=== PATIENT | male | born 1945 | race Caucasian/White ===

== ENCOUNTER 2018-01-14 08:14 | Observation (INO) ==
[2018-01-14] MEDS ORDERED: *HR* Promethazine 25 MG/ML VIAL IVP PRN (11:08)
[2018-01-14] MEDS ORDERED: Isovue-370 500 ML INFUS..BTL IV ONE ×2 (11:08→14:58)
[2018-01-14] MEDS ORDERED: Naloxone 0.4 MG/ML INJ IVP PRN (11:08)
[2018-01-14 11:42] LABS: Basophils # 0.1 K/mcL (0.0-0.2); Eosinophils # 0.1 K/mcL (0.0-0.6); Eosinophils % 1.7 %; Hematocrit 41.9 % (37.5-50.1); Hemoglobin 13.9 g/dL (12.9-16.9); Immature Granulocytes % 0.3 % (0-4); Lymphocytes # 2.1 K/mcL (0.6-4.6); Lymphocytes % 27.2 %; Mean Corpuscular HGB Conc 33.2 g/dL (31.6-35.5); Mean Corpuscular Hemoglobin 31.2 pg (28.0-33.3); Mean Corpuscular Volume 93.9 fL (83.0-100.0); Mean Platelet Volume 10.2 fL (9.4-12.4); Monocytes # 0.7 K/mcL (0.0-1.3); Monocytes % 8.9 %; Neutrophils # 4.8 K/mcL (1.6-8.9); Nucleated Red Blood Cells 0.4 /100 WBC (0); Platelet Count 228 K/mcL (140-400); Red Blood Count 4.46 M/mcL (4.19-5.50); Red Cell Distribution Width 14.6 % (11.5-14.5); Segmented Neutrophils % 60.9 %
[2018-01-14 11:53] LABS: INR 1.1; Prothrombin Time 11.5 Seconds (9.4-12.1)
[2018-01-14 12:07] LABS: BUN/Creatinine Ratio 13 (6-26); Blood Urea Nitrogen 15 mg/dL (8-23); Calcium 9.3 mg/dL (8.6-10.3); Carbon Dioxide 23 mEq/L (23-29); Chloride 108 mEq/L (98-107); Glucose 98 mg/dL (70-105); Osmolality,Calculated 289 (280-300); Potassium 4.1 mEq/L (3.5-5.1); Sodium 139 mEq/L (136-145); eGFR For African Americans > 60 (> 60); eGFR For Non-African Americans 60 (> 60)
--- NOTE | 2018-01-14 12:20 | Urology - Consult Note ---
<Karrie Ramsay N - Last Filed: 01/14/18 12:30> Date of Encounter: 01/14/18 Time of Encounter: 12:17 - Assessment and Plan (1) Gross hematuria Current Visit: Yes Status: Acute Assessment and plan: Patient underwent cystoscopy [address] scan to proceed with TURBT and ureteroscopy. (2) Hydronephrosis Current Visit: Yes Status: Acute Assessment and plan: Awaiting CT scan to further evaluate. Plan to proceed with TURBT and ureteroscopy. (3) Bladder cancer Current Visit: Yes Status: Acute Assessment and plan: Patient has known history of recurrent bladder cancer. Patient is currently awaiting CT abd/pelvis. Plan to undergo TURBT, Right Ureteroscopy. Urology CN:HPI Consult date: 01/14/18 History of present illness: Patient is a 72 yo male with a known history of bladder cancer who presents with gross hematuria. Patient underwent cystoscopy in office [address] Dumont revealing a large bladder tumor. Patient currently reports mild dysuria and worsening urinary urgency. States hematuria is intermittent and denies incontinence, hesitancy, post-void residual, or decreased output or flow. Patient is currently awaiting CT scan. Medications and Allergies Aspirin [Lo-Dose Aspirin EC] 81 mg PO DAILY 01/14/18 [History] Azithromycin [Zithromax] 250 mg PO MOWEFR 01/14/18 [History] Budesonide/Formoterol 160/4.5 [Symbicort 160/4.5] 2 puff IH BIDR 01/14/18 [ History] Ciprofloxacin HCl [Cipro] 500 mg PO DAILY 01/14/18 [History] Ipratropium/Albuterol Sulfate [Combivent Respimat Inhal [place]] 1 puff IH QID [History] LORazepam [Ativan] 0.5 mg PO DAILY 01/14/18 [History] Losartan Potassium [Cozaar] 100 mg PO DAILY 01/14/18 [History] Tiotropium [Spiriva] 18 mcg IH DAILY 01/14/18 [History] predniSONE [PredniSONE] 1 mg PO MOWEFR 01/14/18 [History] Review of Systems - Constitutional as per HPI, fatigue, no chills, no fever(s), no weakness, no weight loss - Cardiovascular dyspnea (stable; chronic COPD), no chest pain, no diaphoresis, no edema, no palpitations - Respiratory dyspnea, no cough (stable; chronic COPD) - Gastrointestinal abdominal pain (mild suprapubic discomfort ), no change in bowel habits, no fecal incontinence, no nausea, no vomiting - Genitourinary as per HPI, dysuria, hematuria, nocturia, urinary frequency, urinary urgency, no change in urinary stream, no difficulty urinating, no flank pain, no genital pain, no post void dribbling, no scrotal swelling, no testicular pain, no urinary hesitancy, no urinary incontinence - Musculoskeletal no back pain, no muscle weakness - Integumentary no erythema, no lesions, no rash, no swelling - Neurological no confusion, no syncope, no weakness - Psychiatric no anxiety, no confusion - Hematologic/Lymphatic no easy bleeding, no easy bruising Exam Initial Vital Signs Temp Pulse Resp BP Pulse Ox 97.6 F 81 18 151/91 89 01/14/18 12:01/14/18 12:06 01/14/18 12:06 01/14/18 12:01/14/18 12:06 - General physical appearance Present: well developed, well nourished, no distress, no pain - Eyes Present: PERRL, normal ocular movement. Absent: icteric - ENT Present: normal nares, no hearing loss, no congestion. Absent: nasal discharge - Neck Present: no masses, trachea midline - Respiratory Present: normal respiratory effort, other (Respirations are equal and unlabored) - Abdomen Abdomen: Present: soft, non tender, suprapubic tenderness. Absent: distended - Integumentary Present: no rash, no growths, no abnormal pigmentation - Neurologic Present: normal coordination. Absent: disoriented, confused Urology Results - Labs 01/14/18 11:27 01/14/18 11:27 Abnormal lab results RDW 14.6 % (11.5-14.5) H 01/14/18 11:27 Nucleated RBCs/100 WBC 0.4 /100 WBC (0) H 01/14/18 11:27 APTT 37.0 Seconds (26.0-36.0) H 01/14/18 11:27 Chloride 108 mEq/L (98-107) H 01/14/18 11:27 Diabetes panel 01/14/18 Range/Units 11:27 Sodium 139 (136-145) mEq/L Potassium 4.1 (3.5-5.1) mEq/L Chloride 108 H (98-107) mEq/L Carbon Dioxide 23 (23-29) mEq/L BUN 15 (8-23) mg/dL Creatinine 1.19 (0.70-1.30) mg/dL Glucose 98 (70-105) mg/dL Calcium 9.3 (8.6-10.3) mg/dL Calcium panel 01/14/18 Range/Units 11:27 Calcium 9.3 (8.6-10.3) mg/dL Pituitary panel 01/14/18 Range/Units 11:27 Sodium 139 (136-145) mEq/L Potassium 4.1 (3.5-5.1) mEq/L Chloride 108 H (98-107) mEq/L Carbon Dioxide 23 (23-29) mEq/L BUN 15 (8-23) mg/dL Creatinine 1.19 (0.70-1.30) mg/dL Glucose 98 (70-105) mg/dL Calcium 9.3 (8.6-10.3) mg/dL Adrenal panel 01/14/18 Range/Units 11:27 Sodium 139 (136-145) mEq/L Potassium 4.1 (3.5-5.1) mEq/L Chloride 108 H (98-107) mEq/L Carbon Dioxide 23 (23-29) mEq/L BUN 15 (8-23) mg/dL Creatinine 1.19 (0.70-1.30) mg/dL Glucose 98 (70-105) mg/dL Calcium 9.3 (8.6-10.3) mg/dL All other labs normal. - Imaging CT scan - abdomen: pending CT scan - pelvis: pending Consult Discharge Plan - Plan Referrals: Marco Sutton [Primary Care Provider] - - Attending Attestation Dr. Tomasz Sutton <Tomasz Sutton - Last Filed: 01/14/18 12:45> Date of Encounter: 01/14/18 - Assessment and Plan (1) Bladder cancer Current Visit: Yes Status: Acute Assessment and plan: I agree with the above plan after evaluating patient with Karrie Ramsay. Patient will get ct for met evaluation and to OR tomorrow. Patient is well- known to me for having bladder cancer in the past. Patient was evaluated 1 year ago where he was determined to have hydronephrosis on the right side likely secondary to obstructing lesion. Patient was given high risk for general anesthesia by his tube filler and thus anesthesia and surgery was not performed. This was discussed with the patient and his at that time. Qualifiers: Bladder location: overlapping sites Qualified Code(s): C67.8 - Malignant neoplasm of overlapping sites of bladder (2) Hydronephrosis Current Visit: Yes Status: Acute Assessment and plan: likely secondary to obstructing tumor. Qualifiers: Hydronephrosis type: other Qualified Code(s): N13.39 - Other hydronephrosis Exam Initial Vital Signs Temp Pulse Resp BP Pulse Ox 97.6 F 81 18 151/91 89 01/14/18 12:06 01/14/18 12:06 01/14/18 12:06 01/14/18 12:06 01/14/18 12:06 Urology Results - Labs 01/14/18 11:27 01/14/18 11:27 Abnormal lab results RDW 14.6 % (11.5-14.5) H 01/14/18 11:27 Nucleated RBCs/100 WBC 0.4 /100 WBC (0) H 01/14/18 11:27 APTT 37.0 Seconds (26.0-36.0) H 01/14/18 11:27 Chloride 108 mEq/L (98-107) H 01/14/18 11:27 Diabetes panel 01/14/18 Range/Units 11:27 Sodium 139 (136-145) mEq/L Potassium 4.1 (3.5-5.1) mEq/L Chloride 108 H (98-107) mEq/L Carbon Dioxide 23 (23-29) mEq/L BUN 15 (8-23) mg/dL Creatinine 1.19 (0.70-1.30) mg/dL Glucose 98 (70-105) mg/dL Calcium 9.3 (8.6-10.3) mg/dL Calcium panel 01/14/18 Range/Units 11:27 Calcium 9.3 (8.6-10.3) mg/dL Pituitary panel 01/14/18 Range/Units 11:27 Sodium 139 (136-145) mEq/L Potassium 4.1 (3.5-5.1) mEq/L Chloride 108 H (98-107) mEq/L Carbon Dioxide 23 (23-29) mEq/L BUN 15 (8-23) mg/dL Creatinine 1.19 (0.70-1.30) mg/dL Glucose 98 (70-105) mg/dL Calcium 9.3 (8.6-10.3) mg/dL Adrenal panel 01/14/18 Range/Units 11:27 Sodium 139 (136-145) mEq/L Potassium 4.1 (3.5-5.1) mEq/L Chloride 108 H (98-107) mEq/L Carbon Dioxide 23 (23-29) mEq/L BUN 15 (8-23) mg/dL Creatinine 1.19 (0.70-1.30) mg/dL Glucose 98 (70-105) mg/dL Calcium 9.3 (8.6-10.3) mg/dL All other labs normal.
[2018-01-14] MEDS: 0.9 % Sodium Chloride 1,000 ML IVC SCH (13:02)
--- NOTE | 2018-01-14 17:47 | Event Note ---
Date of Encounter: 01/14/18 Time of Encounter: 17:45 I discussed with the patient and his and his son regarding the CT scan results and the plan for tomorrow. They are agreeable to proceed with the TURBT and right diagnostic ureteroscopy with possible stent placement tomorrow. I did discuss with the patient my concerns regarding his multiple subcentimeter lymph nodes. Patient and are concerned regarding the need for general anesthesia and his increased risk factors. Patient will be evaluated by anesthesiology. I discussed with the family that at this time we need to get the diagnosis of what is going on and then proceed with future management depending on results.
[2018-01-15] MEDS: 0.9 % Sodium Chloride 1,000 ML IVC SCH (00:06)
--- NOTE | 2018-01-15 07:01 | Urology Progress Note ---
Date of Encounter: 01/15/18 Time of Encounter: 06:59 - Assessment and Plan (1) Bladder cancer Current Visit: Yes Status: Acute Assessment and plan: to or today for turbt. Qualifiers: Bladder location: overlapping sites Qualified Code(s): C67.8 - Malignant neoplasm of overlapping sites of bladder (2) Hydronephrosis Current Visit: Yes Status: Acute Assessment and plan: will attempt right ureteroscopy and possible stent placement today. Qualifiers: Hydronephrosis type: other Qualified Code(s): N13.39 - Other hydronephrosis (3) Gross hematuria Current Visit: Yes Status: Acute Assessment and plan: stable at this time. no clots. able to empty bladder. Progress Note Narrative: Patient seen. no new complaints. Objective Initial Vital Signs Temp Pulse Resp BP Pulse Ox 97.6 F 81 18 151/91 89 01/14/18 12:06 01/14/18 12:06 01/14/18 12:06 01/14/18 12:06 01/14/18 12:06 - General physical appearance Present: well developed, well nourished - Abdomen Present: soft. Absent: tender - Labs 01/14/18 11:27 01/14/18 11:27 Diabetes panel 01/14/18 Range/Units 11:27 Sodium 139 (136-145) mEq/L Potassium 4.1 (3.5-5.1) mEq/L Chloride 108 H (98-107) mEq/L Carbon Dioxide 23 (23-29) mEq/L BUN 15 (8-23) mg/dL Creatinine 1.19 (0.70-1.30) mg/dL Glucose 98 (70-105) mg/dL Calcium 9.3 (8.6-10.3) mg/dL Calcium panel 01/14/18 Range/Units 11:27 Calcium 9.3 (8.6-10.3) mg/dL Pituitary panel 01/14/18 Range/Units 11:27 Sodium 139 (136-145) mEq/L Potassium 4.1 (3.5-5.1) mEq/L Chloride 108 H (98-107) mEq/L Carbon Dioxide 23 (23-29) mEq/L BUN 15 (8-23) mg/dL Creatinine 1.19 (0.70-1.30) mg/dL Glucose 98 (70-105) mg/dL Calcium 9.3 (8.6-10.3) mg/dL Adrenal panel 01/14/18 Range/Units 11:27 Sodium 139 (136-145) mEq/L Potassium 4.1 (3.5-5.1) mEq/L Chloride 108 H (98-107) mEq/L Carbon Dioxide 23 (23-29) mEq/L BUN 15 (8-23) mg/dL Creatinine 1.19 (0.70-1.30) mg/dL Glucose 98 (70-105) mg/dL Calcium 9.3 (8.6-10.3) mg/dL Consult Discharge Plan - Plan Referrals: Tomasz Sutton MD [Partnered Physician] - Marco Sutton [Primary Care Provider] -
[2018-01-15] MEDS ORDERED: *HR* Propofol 200 MG/20 ML VIAL IVP ONE (14:41)
[2018-01-15] MEDS ORDERED: Albuterol 2.5 MG/3 ML NEBULIZER IH ONE (14:41)
[2018-01-15] MEDS ORDERED: *HR* FentaNYL (PF) 100 MCG/2 ML VIAL ONE (14:41)
[2018-01-15] MEDS ORDERED: Lidocaine -MPF 2% 2 ML VIAL ONE (14:42)
[2018-01-15] MEDS ORDERED: Ondansetron 4 MG/2 ML VIAL ONE (14:44)
--- NOTE | 2018-01-15 14:46 | Anesthesia Evaluation PreOp ---
Date of Encounter: 01/15/18 Time of Encounter: 14:15 - Past History Planned Operation: TURBT Cardiac History: HTN, Hyperlipidemia, Cardiac Stent, Other (CAD) Pulmonary History: Smoker, COPD [employer] History: Denies Any Significant HX Other Medical History: Denies Any Significant HX Anesthesia History: No Prior Anesthetic Complications Alcohol Use: rarely Drug use: none Medications and Allergies Aspirin [Lo-Dose Aspirin EC] 81 mg PO DAILY 01/14/18 [History] Azithromycin [Zithromax] 250 mg PO MOWEFR 01/14/18 [History] Budesonide/Formoterol 160/4.5 [Symbicort 160/4.5] 2 puff IH BIDR 01/14/18 [ History] Ciprofloxacin HCl [Cipro] 500 mg PO DAILY 01/14/18 [History] Ipratropium/Albuterol Sulfate [Combivent Respimat Inhal [place]] 1 puff IH QID [History] LORazepam [Ativan] 0.5 mg PO DAILY 01/14/18 [History] Losartan Potassium [Cozaar] 100 mg PO DAILY 01/14/18 [History] Tiotropium [Spiriva] 18 mcg IH DAILY 01/14/18 [History] predniSONE [PredniSONE] 1 mg PO MOWEFR 01/14/18 [History] 3 Allergy/AdvReac Type Severity Reaction Status Date / Time No Known Allergies Allergy Verified 01/14/18 14:00 - Meds/Allergy Pre-op Review Medications Reviewed: Yes Allergies Reviewed: Yes Beta Blockers on Current Med List: No Anesthesia Results - Labs 01/14/18 11:27 01/14/18 11:27 Laboratory Tests 01/14/18 01/14/18 01/14/18 11:27 11:27 11:27 Hgb 13.9 Hct 41.9 Plt Count 228 PT 11.5 INR 1.1 APTT 37.0 H Sodium 139 Potassium 4.1 BUN 15 Creatinine 1.19 - Imaging EKG: pending Anesthesia Exam Vital Signs/O2 Sat/Glucose, Most Current Temp Pulse Resp BP Pulse Ox 01/15/18 10:49 98.1 F 61 14 114/76 98 Height: 5'10 Weight: 139 lbs NPO (# of Hours): MN Pain Scale: 0 - HEENT Pupil (Motor): Pupils equal, EOMI Mallampati: III Teeth: Normal Oral Opening: Less than or equal to 3 - [employer] LOC: Oriented [employer] Motor: Normal RUE, Normal LUE, Normal RLE, Normal LLE, Normal Face [employer] Sensory: Normal: RUE, LUE, RLE, LLE, Face - Cardiac Rhythm: Regular Murmur: None JVD: No Carotid Bruit: No - Pulmonary Breath Sounds: bilateral Clear Respiratory Effort: Symmetrical Anesthesia Assess/Plan ASA Score: 3 (HTN CAD COPD Tobacco)
[2018-01-15] MEDS ORDERED: Famotidine 20 MG/2 ML VIAL ONE (14:52)
[2018-01-15] MEDS ORDERED: Acetaminophen IV 1,000 MG/100 ML INFUS..BTL ONE (14:52)
[2018-01-15] MEDS ORDERED: *HR* OxyCODONE Immed Rel 5 MG TABLET PO PRN (15:10)
[2018-01-15] MEDS ORDERED: *HR* HYDROmorphone (PF) 1 MG/ML SYRINGE IVP PRN (15:10)
[2018-01-15] MEDS ORDERED: *HR* Labetalol 20 MG/4 ML SYRINGE IVP PRN (15:10)
[2018-01-15] MEDS ORDERED: Isovue-300 50 ML VIAL IVP ONE (16:03)
--- NOTE | 2018-01-15 16:23 | Operative Note ---
Date of procedure: 01/15/18 Pre-op diagnosis: bladder cancer and right hydronephrosis Post-op diagnosis: same Procedure: Transurethral section of bladder tumor, right ureteroscopy, right retrograde pyelogram Anesthesia: TATA Surgeon: Tomasz Sutton Was there an dental assistant present: Yes Pilates Coordinator: Karrie Ramsay Estimated blood loss (cc): 10 Specimen: bladder tumor Condition: stable Disposition: PACU Procedure in Detail: I discussed with the patient and his the consent form. All pertinent risks benefits and alternatives were discussed with the patient and he agreed to proceed. Patient was prepped and draped in normal sterile fashion. Timeout procedure performed. At this point I introduced the bipolar resectoscope into the patient 's bladder. I visualized the 3 cm right lateral wall tumor. This covered the right ureteral orifice. No other tumors were seen throughout the bladder. I then proceeded to resect this tumor in its entirety. It completely covered the right ureteral orifice. I still visualized tumor coming from the right ureteral orifice after resection over the orifice. Hemostasis was obtained. I then removed all specimen from the patient's bladder. I then placed the semirigid ureteroscope into the patient's bladder. I was able to cannulate the right ureteral orifice using a zip wire and followed this into the right ureteral orifice. I immediately encountered some tumor within the right distal ureter. I attempted to place the wire more proximal to this area but it would not pass. At this point I performed a retrograde pyelogram using half dilute contrast with no contrast going beyond the area of visible tumor. I slowly withdrew the scope. I visualized the resection bed one further time with no obvious bleeding seen. The scope with withdrawn and the procedure ended. Patient was taken to PACU in stable condition.
--- NOTE | 2018-01-15 16:41 | Anesthesia Evaluation Post Op ---
Date of Encounter: 01/15/18 Time of Encounter: 16:40 - Vital Signs Vital Signs: vss - Airway Airway: Non-obstructed - Mental Status Mental Status: Alert & Oriented, Answers Appropriately - Pain Pain Scale used: Moises (Faces) - Nausea Vomiting Nausea Vomiting: Not Present - Discharge PostOp Status: Transfer Patient to floor
[2018-01-15] MEDS ORDERED: Naloxone 0.4 MG/ML INJ IVP PRN (16:59)
[2018-01-15] MEDS ORDERED: *HR* Promethazine 25 MG/ML VIAL IVP PRN (16:59)
[2018-01-15] MEDS ORDERED: 0.9 % Sodium Chloride 1,000 ML IVC SCH (16:59)
[2018-01-15] MEDS: Ipratropium/Albuterol Neb 3 ML IH SCH ×2 (19:20→22:39)
[2018-01-15] MEDS: Budesonide/Formoterol 160/4.5 MDI IH SCH (22:39)
[2018-01-15] MEDS ORDERED: Ipratropium/Albuterol Neb 3 ML IH PRN (23:01)
[2018-01-16] MEDS: 0.9 % Sodium Chloride 1,000 ML IVC SCH (01:19)
[2018-01-16] MEDS: Budesonide/Formoterol 160/4.5 MDI IH SCH (07:18)
--- NOTE | 2018-01-16 08:38 | Discharge Summary ---
Orders not resulted at time of discharge: Pending orders 01/15/18 16:32 Surgical Pathology [PTH] Routine Date of Encounter: 01/16/18 Time of Encounter: 08:35 - Discharge Diagnosis (1) Bladder cancer Priority: Primary Status: Acute Qualifiers: Bladder location: overlapping sites Qualified Code(s): C67.8 - Malignant neoplasm of overlapping sites of bladder (2) Hydronephrosis Priority: Secondary Status: Acute Qualifiers: Hydronephrosis type: other Qualified Code(s): N13.39 - Other hydronephrosis (3) Gross hematuria Priority: Secondary Status: Acute - Hospital Course Hospital course: Mr. Godwin is a 72 year old male with history of gross hematuria. Patient was brought into the hospital. CT scan was performed which showed right-sided hydronephrosis with a right ureteral filling defect and bladder tumor on the right lateral wall. Patient was taken the operating room on 01/15/2018 where he underwent a bladder tumor resection as well as right ureteroscopy. Attempted right ureteral stent placement but was unsuccessful. Patient recovered well overnight. Patient's labs remain stable. Patient's serum creatinine stable as well. Patient tolerated diet. He did require oxygen at night. Minimal ambulation secondary to occasional shortness of breath. Time spent discussing smoking cessation with patient: 3 to 10 minutes - Time Spent with Patient Total time spent providing and/or coordinating discharge services: Less than 30 minutes Procedures and tests throughout hospitalization: Transurethral section of bladder tumor, right retrograde pyelogram, right ureteroscopy on 01/16/2016 Labs on day of discharge: Labs from last 24 hours 01/15/18 01/15/18 11:08 05:52 POC Glucose 90 99 - Impressions ITS Impressions Abdomen/Pelvis CT 01/14/18 11:08 IMPRESSION: 1. 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 2. Abdominal aortic aneurysm. 1. Stable subpleural nodule right middle lobe. RECOMMENDATIONS: Managing Abdominal Aortic Aneurysms 3.0-3.4 cm: Every 3 years. *For abdominal aortas with maximum diameter of 2.6-2.9 cm meeting criteria for AAA (>50% of proximal normal segment). Reference: J Vasc Surg. 2009 Apr;50(4 Suppl):S2-49 Fleischner Society guidelines for follow-up and management of incidentally detected pulmonary nodules: Single Solid Nodule: Nodule size less than 6 mm In a low-risk patient, no routine follow-up. In a high-risk patient, optional CT at 12 months. - Low risk patients include individuals with minimal or absent history of smoking and other known risk factors. - High risk patients include individuals with a history or smoking or known risk factors. Radiology 2017 http://pubs.rsna.org/doi/full/10.1148/radiol.3328141377 D/ / Zaria Otto MD / Zaria Otto MD Interpreting Provider: Zaria Otto MD Retrograde Pyelogram 01/15/18 00:00 IMPRESSION: Intraprocedural fluoroscopic spot images as above. See separate procedure report for more information. D/ / Luis Carlos Jung MD / Luis Carlos Jung MD Interpreting Provider: Luis Carlos Jung MD - Discharge Medications Prescriptions: HYDROcodone/Acet 5/325 mg [[place] 5-325 mg] 1 tab PO Q6H PRN 3 Days #10 tab PRN Reason: Pain Home Medications: Aspirin [Lo-Dose Aspirin EC] 81 mg PO DAILY 01/14/18 [History] Azithromycin [Zithromax] 250 mg PO MOWEFR 01/14/18 [History] Budesonide/Formoterol 160/4.5 [Symbicort 160/4.5] 2 puff IH BIDR 01/14/18 [ History] Ciprofloxacin HCl [Cipro] 500 mg PO DAILY 01/14/18 [History] Ipratropium/Albuterol Sulfate [Combivent Respimat Inhal [place]] 1 puff IH QID [History] LORazepam [Ativan] 0.5 mg PO DAILY 01/14/18 [History] Losartan Potassium [Cozaar] 100 mg PO DAILY 01/14/18 [History] Tiotropium [Spiriva] 18 mcg IH DAILY 01/14/18 [History] predniSONE [PredniSONE] 1 mg PO MOWEFR 01/14/18 [History] HYDROcodone/Acet 5/325 mg [[place] 5-325 mg] 1 tab PO Q6H PRN 3 Days #10 tab 01/16 [Rx] Allergies/Adverse Reactions: 3 Allergy/AdvReac Type Severity Reaction Status Date / Time No Known Allergies Allergy Verified 01/14/18 14:00 Date of admission: 01/14/18 10:52 Primary care physician: Marco Sutton Discharging clinician: Tomasz Sutton Anticipated date of discharge: 01/16/18 Exam Initial Vital Signs Temp Pulse Resp BP Pulse Ox 97.6 F 81 18 151/91 89 01/14/18 12:06 01/14/18 12:06 01/14/18 12:06 01/14/18 12:06 01/14/18 12:06 - General physical appearance Present: well developed, well nourished - Eyes Present: PERRL - Neck Present: no masses - Respiratory Present: normal respiratory effort - Cardiovascular Cardiovascular exam IM: RRR - Patient Status Disposition: Home, Self-Care Condition: Good Functional capacity at discharge: independent ambulation Overall status at discharge: patient is progressing back to baseline - Discharge Instructions Follow Up With: Marco Sutton [Primary Care Provider] - Tomasz Sutton MD [Partnered Physician] - 02/01/18 3:00 pm - Diet and Activity Activity: increase activity as tolerated Diet: advance to your usual diet - VTE Documentation of Mechanical Device: Intermittent pneumatic compression device
[2018-01-16] MEDS ORDERED: *HR* LORazepam 0.5 MG TABLET PO SCH (09:00)
[2018-01-16] MEDS ORDERED: Tiotropium 18 MCG inhalation IH SCH (10:00)
[2018-01-16 10:54] VITALS: BP 114/83
--- NOTE | 2018-01-16 12:20 | Electrocardiograph Report ---
[address] [address] Test Date: 2018-01-15 Pat Name: Dagoberto Godwin Department: 101 Room: 3A36 Gender: M [employer]: : 1945 Requested By: Kishore Martin Order Number: [id number] Reading MD: Tonio Zafar Measurements Intervals [place] Rate: 67 P: 76 [place]: 171 QRS: 79 QRSD: 92 T: 74 QT: 404 QTc: 419 Interpretive Statements SINUS RHYTHM NONSPECIFIC ST-T CHANGES ARTIFACT Electronically Signed On 01-16-2018 12:19:07 EDT by Tonio Zafar
[2018-01-16] MEDS ORDERED: predniSONE 1 MG TABLET PO SCH (17:00)
== END 2018-01-16 13:03 | disposition home or self-care (01) ==
LOC: 3ANU
PROVIDERS: ADMIT Urology; ATTEND Urology